=== PATIENT | male | born 1945 | race Caucasian/White ===

== ENCOUNTER 2018-05-09 09:52 | Day surgery (SDC) | payer BC, MEDICARE, OTHER ==
[2018-05-09] MEDS: TROPICAMIDE 1% OPH SOLN 3 ML OD PRN ×3 (08:44→09:03)
[2018-05-09] MEDS: TETRACAINE HCL 0.5% OPH SOLN 4 ML OD PRN ×3 (08:44→09:07)
[2018-05-09] MEDS: CYCLOPENTOLATE 0.2%/PHENYLEPHRINE 1% OPH SOLN 2 ML OD PRN ×3 (08:45→09:03)
[2018-05-09] MEDS: BESIFLOXACIN HCL 0.6% OPH SUSP 5 ML BOTTLE OD PRN ×4 (08:45→09:35)
[2018-05-09] MEDS: CHONDR SU A NA/HYALUR INTRAOC KIT (SURGICARE) ONE ×2 (09:23)
[2018-05-09] MEDS: EPINEPHRINE INJ/PF 1 MG/1 ML AMPULE ONE ×2 (09:23)
[2018-05-09] MEDS: LIDOCAINE 1%/PHENYLEPHRINE 1.5% 1 ML VIAL ONE ×2 (09:23)
[2018-05-09] MEDS: DORZOLAMIDE HCL 2%/TIMOLOL MALEAT 0.5% OPH SOLN 10 ML OD PRN ×2 (09:35)
[~2018-05-09 09:52] MED LIST: KETOROLAC TROMETHAMINE 0.45% 4 DROP/0.4 ML DROPERETTE OD PRN; MIDAZOLAM 2 MG/2 ML INJ ONE
--- NOTE | 2018-05-10 06:53 | [facility] DISCHARGE SUMMARY E ---
[facility] Discharge Summary NAME: LOW CHAN AGE: 72Y ADMITTED: 05/09/2018 DISCHARGED: 05/09/2018 HISTORY: This is a 72-year-old male who underwent cataract extraction of the right eye with insertion of a 19.0 SN60WF lens, CDE of 7.09. DIAGNOSIS: Cataract, right eye. HOSPITAL COURSE: The patient underwent surgery because he was having difficulty driving due to decreased vision. DISCHARGE INSTRUCTIONS: He should be on a regular diet. No bending at the waist. No heaving lifting. He should use his Vigamox, ketorolac, and Pred Forte at 3 p.m. and 8 p.m. and sleep with a rigid shield, and I will see him for a one day postoperative tomorrow. DICTATING PHYSICIAN: RYDER HARDY M.D. [id number] PHY#: [id number] ID: [id number] JOB#: [id number] ACCT: [id number] cc:RYDER HARDY M.D. >
--- NOTE | 2018-05-10 06:53 | [facility] OPERATIVE REPORT E ---
[facility] Operative Report NAME: LOW CHAN AGE: 72Y DATE OF SURGERY: 05/09/2018 ROOM: PREOPERATIVE DIAGNOSIS: CATARACT, RIGHT EYE. POSTOPERATIVE DIAGNOSIS: CATARACT, RIGHT EYE. OPERATION: Cataract extraction with insertion of an IOL of the right eye. SURGEON: RYDER HARDY M.D. ANESTHESIA: Topical. PROCEDURE: After obtaining appropriate consent, the patient's right eye was prepped and draped in sterile fashion as well as the surgeon in a sterile manner and cataract surgery was started. First a paracentesis blade was used to make a side-port incision. Viscoelastic was used to inflate the anterior chamber. Next a 2.4 mm incision was made with a 2.4 mm blade, clear corneal temporally. A continuous capsulorrhexis was made using a cystotome and Utrata forceps. Following this hydrodissection was carried out to make the lens fully loose and mobile and it was rotated 90 degrees. Following this, a jdiodt-rsv-jmpbywl technique was used to phacoemulsify the lens with a CDE of 7.09. The remaining cortex was removed with irrigation/aspiration. Provisc was instilled into the capsular bag to inflate the bag. A SN60WF, 19.0 diopter lens was placed. The remaining viscoelastic material was removed with irrigation/aspiration. Following this, the incision was found to be watertight. Besivance was instilled into the eye and a protective shield was placed over the eye. The patient returned to the postoperative recovery in stable condition. After injecting the intraocular lens, it was noted that there was a small tear at the optic haptic junction. The lens opened normally and was well centered and found to be in excellent position. Therefore, it looked to be in a stable place and we decided not to have the patient undergo any further risks to cut out the lens and put a new lens in its place. I will watch this lens carefully postop to make sure that it is well centered instead of having the patient go through further surgery when it most likely will be in excellent position. DICTATING PHYSICIAN: RYDER HARDY M.D. [id number] PHY#: [id number] ID: [id number] JOB#: [id number] ACCT: [id number] cc:RYDER HARDY M.D. >
== END 2018-05-09 10:07 | disposition home or self-care (01) ==
LOC: SC 09:52
PROVIDERS: ATTEND Internal Medicine
DX: H25.813 Combined forms of age-related cataract, bilateral (principal); H40.013 Open angle with borderline findings, low risk, bilateral; F17.210 Nicotine dependence, cigarettes, uncomplicated; I10 Essential (primary) hypertension; G40.909 Epilepsy, unspecified, not intractable, without status epilepticus; J44.9 Chronic obstructive pulmonary disease, unspecified; Z79.899 Other long term (current) drug therapy; Z79.51 Long term (current) use of inhaled steroids
CPT/HCPCS: 66984; V2632; J2250; J3490 ×2; J0171; J2370; 142

== ENCOUNTER 2018-05-16 09:56 | Day surgery (SDC) | payer OTHER, MEDICARE ==
[~2018-05-16 09:56] MED LIST changes: +CHONDR SU A NA/HYALUR INTRAOC KIT (SURGICARE) ONE; +EPINEPHRINE INJ/PF 1 MG/1 ML AMPULE ONE; +LIDOCAINE 1%/PHENYLEPHRINE 1.5% 1 ML VIAL ONE; -MIDAZOLAM 2 MG/2 ML INJ ONE
[2018-05-16] MEDS: TETRACAINE HCL 0.5% OPH SOLN 4 ML OD PRN ×3 (10:38→11:22)
[2018-05-16] MEDS: BESIFLOXACIN HCL 0.6% OPH SUSP 5 ML BOTTLE OD PRN ×4 (10:39→12:05)
[2018-05-16] MEDS: CYCLOPENTOLATE 0.2%/PHENYLEPHRINE 1% OPH SOLN 2 ML OD PRN ×3 (10:39→10:59)
[2018-05-16] MEDS: TROPICAMIDE 1% OPH SOLN 3 ML OD PRN ×3 (10:39→10:58)
[2018-05-16] MEDS ORDERED: FENTANYL CITRATE INJ/PF 100 MCG/2 ML AMPUL ONE (10:54)
[2018-05-16] MEDS ORDERED: MIDAZOLAM 2 MG/2 ML INJ ONE (10:54)
[2018-05-16] MEDS ORDERED: CHONDR SU A NA/HYALUR SOD 0.5 ML DISP.SYRIN ONE (11:49)
[2018-05-16] MEDS: DORZOLAMIDE HCL 2%/TIMOLOL MALEAT 0.5% OPH SOLN 10 ML OD PRN ×2 (12:05)
--- NOTE | 2018-05-16 19:23 | [facility] DISCHARGE SUMMARY E ---
[facility] Discharge Summary NAME: LOW CHAN AGE: 72Y ADMITTED: 05/16/2018 DISCHARGED: This is a 72-year-old male who underwent IOL exchange of the right eye. DIAGNOSIS: DISLOCATED IOL OF THE RIGHT EYE. The patient underwent surgery because he was having lines in his vision due to the optic being decentered in the pupillary margin. He should be on a regular diet. No bending at the waist and no heavy lifting. He should use his Vigamox, ketorolac, and Pred Forte at 3:00 p.m. and 8:00 p.m. as well as [place] at 3:00 p.m. and 8:00 p.m., and sleep with a rigid shield. I will see him for his 1-day postop tomorrow. DICTATING PHYSICIAN: RYDER HARDY M.D. [id number] PHY#: [id number] ID: [id number] JOB#: [id number] ACCT: [id number] cc:RYDER HARDY M.D. >
--- NOTE | 2018-05-16 19:24 | [facility] OPERATIVE REPORT E ---
[facility] Operative Report NAME: LOW CHAN AGE: 72Y DATE OF SURGERY: 05/16/2018 ROOM: PREOPERATIVE DIAGNOSIS: DISLOCATED IOL OF THE RIGHT EYE. OPERATION: IOL EXCHANGE OF THE RIGHT EYE. SURGEON: RYDER HARDY M.D. ANESTHESIA: Topical. COMPLICATIONS: None. PROCEDURE: After obtaining appropriate informed consent, the right eye was prepped and draped in sterile fashion. Prior history, the patient had an IOL placed in the eye that had a tear in the haptic-optic junction. It appeared to be centered at the case, but seen postoperatively the lens was decentered and the patient was having symptoms. Therefore, an IOL exchange was determined. The 2.4 mm incision was reopened. Viscoelastic was instilled into the eye. The 1.2 mm side port incision was reopened from the previous surgery as well. Viscoelastic was used to carefully dissect the anterior capsule as well as underneath the lens and around the haptics to make sure the lens was freely mobile. At this point, a Sinskey hook was used to dial out the first IOL. A new IOL implant was injected into the capsular bag underneath the old IOL, with a diopter of 19.0, SN60WF. Following this, using a micro duet piece, the lens was grasped with forceps. The first lens was grasped with forceps and dissected in half using a micro scissor. These 2 lens pieces were then removed in their entirety. Irrigation aspiration was used to remove the remaining viscoelastic, and the new lens was well centered in the capsular bag. The incisions were found to be watertight and there was no need for any sutures. The patient was taken postop recovery in stable condition. DICTATING PHYSICIAN: RYDER HARDY M.D. [id number] PHY#: [id number] ID: [id number] JOB#: [id number] ACCT: [id number] cc:RYDER HARDY M.D. >
== END 2018-05-16 12:40 | disposition home or self-care (01) ==
LOC: SC 09:56
PROVIDERS: ATTEND Internal Medicine
DX: T85.21XA Breakdown (mechanical) of intraocular lens, initial encounter (principal); Y83.8 Other surgical procedures as the cause of abnormal reaction of the patient, or of later complication, without mention of misadventure at the time of the procedure; Z96.1 Presence of intraocular lens; H25.812 Combined forms of age-related cataract, left eye; H40.89 Other specified glaucoma; J44.9 Chronic obstructive pulmonary disease, unspecified; G40.909 Epilepsy, unspecified, not intractable, without status epilepticus; I10 Essential (primary) hypertension; Z79.891 Long term (current) use of opiate analgesic; Z79.899 Other long term (current) drug therapy; Z88.5 Allergy status to narcotic agent; Z79.51 Long term (current) use of inhaled steroids
CPT/HCPCS: 66986; V2632; J2250; J3490 ×3; J0171; J3010; J2370; 142

== ENCOUNTER 2018-05-30 09:12 | Day surgery (SDC) | payer OTHER, MEDICARE ==
[~2018-05-30 09:12] MED LIST changes: -CHONDR SU A NA/HYALUR INTRAOC KIT (SURGICARE) ONE; -EPINEPHRINE INJ/PF 1 MG/1 ML AMPULE ONE; -KETOROLAC TROMETHAMINE 0.45% 4 DROP/0.4 ML DROPERETTE OD PRN; +KETOROLAC TROMETHAMINE 0.45% 4 DROP/0.4 ML DROPERETTE OS PRN; -LIDOCAINE 1%/PHENYLEPHRINE 1.5% 1 ML VIAL ONE
[2018-05-30] MEDS: TETRACAINE HCL 0.5% OPH SOLN 4 ML OS PRN ×4 (10:12→10:55)
[2018-05-30] MEDS: TROPICAMIDE 1% OPH SOLN 3 ML OS PRN ×3 (10:12→10:42)
[2018-05-30] MEDS: CYCLOPENTOLATE 0.2%/PHENYLEPHRINE 1% OPH SOLN 2 ML OS PRN ×3 (10:13→10:42)
[2018-05-30] MEDS: BESIFLOXACIN HCL 0.6% OPH SUSP 5 ML BOTTLE OS PRN ×4 (10:13→11:16)
[2018-05-30] MEDS ORDERED: MIDAZOLAM 2 MG/2 ML INJ ONE (10:29)
[2018-05-30] MEDS: CHONDR SU A NA/HYALUR INTRAOC KIT (SURGICARE) ONE ×2 (11:06)
[2018-05-30] MEDS: EPINEPHRINE INJ/PF 1 MG/1 ML AMPULE ONE ×2 (11:06)
[2018-05-30] MEDS: LIDOCAINE 1%/PHENYLEPHRINE 1.5% 1 ML VIAL ONE ×2 (11:06)
[2018-05-30] MEDS: DORZOLAMIDE HCL 2%/TIMOLOL MALEAT 0.5% OPH SOLN 10 ML OS PRN ×2 (11:16)
--- NOTE | 2018-05-30 14:19 | [facility] OPERATIVE REPORT E ---
[facility] Operative Report NAME: LOW CHAN AGE: 72Y DATE OF SURGERY: 05/30/2018 ROOM: PREOPERATIVE DIAGNOSIS: CATARACT, LEFT EYE. POSTOPERATIVE DIAGNOSIS: CATARACT, LEFT EYE. OPERATION: Cataract extraction with insertion of an IOL of the left eye. SURGEON: RYDER HARDY M.D. ANESTHESIA: Topical. PROCEDURE: After obtaining appropriate consent, the patient's left eye was prepped and draped in sterile fashion as well as the surgeon in a sterile manner and cataract surgery was started. First a paracentesis blade was used to make a side-port incision. Viscoelastic was used to inflate the anterior chamber. Next a 2.4 mm incision was made with a 2.4 mm blade, clear corneal temporally. A continuous capsulorrhexis was made using a cystotome and Utrata forceps. Following this hydrodissection was carried out to make the lens fully loose and mobile and it was rotated 90 degrees. Following this, a npjoue-kmf-umxiecs technique was used to phacoemulsify the lens with a CDE of 5.31. The remaining cortex was removed with irrigation/aspiration. Provisc was instilled into the capsular bag to inflate the bag. A SN60WF, 19.0 diopter lens was placed. The remaining viscoelastic material was removed with irrigation/aspiration. Following this, the incision was found to be watertight. Besivance was instilled into the eye and a protective shield was placed over the eye. The patient returned to the postoperative recovery in stable condition. DICTATING PHYSICIAN: RYDER HARDY M.D. [id number] PHY#: [id number] ID: [id number] JOB#: [id number] ACCT: [id number] cc:RYDER HARDY M.D. >
--- NOTE | 2018-05-30 14:20 | [facility] DISCHARGE SUMMARY E ---
[facility] Discharge Summary NAME: LOW CHAN AGE: 72Y ADMITTED: 05/30/2018 DISCHARGED: This is a 72-year-old male who underwent cataract extraction of the left eye. DIAGNOSIS: Cataract left eye. He underwent surgery because he was having difficulty driving at night secondary to glare from headlights. He should be on a regular diet. No bending at the waist and no heavy lifting. He should use his Vigamox, ketorolac, and Pred Forte at 3:00 p.m. and 8:00 p.m. and sleep with a rigid shield. I will see him for his 1-day postop tomorrow. DICTATING PHYSICIAN: RYDER HARDY M.D. [id number] PHY#: [id number] ID: [id number] JOB#: [id number] ACCT: [id number] cc:RYDER HARDY M.D. >
== END 2018-05-30 11:50 | disposition home or self-care (01) ==
LOC: SC 09:12
PROVIDERS: ATTEND Internal Medicine
DX: H25.812 Combined forms of age-related cataract, left eye (principal); Z96.1 Presence of intraocular lens; I10 Essential (primary) hypertension; F17.210 Nicotine dependence, cigarettes, uncomplicated; G40.909 Epilepsy, unspecified, not intractable, without status epilepticus; Z88.5 Allergy status to narcotic agent; Z79.899 Other long term (current) drug therapy
CPT/HCPCS: 66984; V2632; J2250; J3490 ×2; J0171; J2370; 142